=== PATIENT | female | born 1975 | race Caucasian/White ===

== ENCOUNTER 2020-08-23 15:14 | Outpatient (CLI) | payer OTHER, SELFPAY ==
--- NOTE | ~2020-08-23 | MM_ITS ---
EXAMINATION: MM scrn milan implant BI w nestor HISTORY: Screening mammogram TECHNIQUE: Craniocaudal and mediolateral oblique 3-D tomosynthesis images with implant displacement a nd synthetic 2-D images were generated. Craniocaudal and mediolateral oblique views of the breasts wi thout implant displacement were obtained using full field digital mammography. CAD analysis was submi tted and interpreted. COMPARISON: Comparison to multiple prior studies sequentially, with oldest reviewed study dated 05/24. BREAST PARENCHYMAL COMPOSITION: The breasts are heterogeneously dense, which may obscure small masses . FINDINGS: There is no evidence of suspicious mass, calcification, or architectural distortion to sugg est malignancy in either breast. There has been no suspicious interval change. IMPRESSION: 1. No mammographic evidence of malignancy. 2. Recommend routine screening mammography in one year. BI-RADS Category 1: Negative Reviewed, dictated and finalized at location A. [employer]
== END 2020-08-23 15:15 | disposition home or self-care (01) ==
LOC: ANHIMG 15:19
PROVIDERS: PCP Nurse Practitioner Family; Visit Provider Obstetrics & Gynecology
DX: Z12.31 Encounter for screening mammogram for malignant neoplasm of breast (principal)
CPT/HCPCS: 77063; 77067

== ENCOUNTER 2022-02-27 10:18 | Outpatient (CLI) | payer OTHER, SELFPAY ==
--- NOTE | ~2022-02-27 | MM_ITS ---
EXAMINATION: MM scrn milan implant BI w nestor HISTORY: Screening mammogram TECHNIQUE: Craniocaudal and mediolateral oblique 3-D tomosynthesis images with implant displacement a nd synthetic 2-D images were generated. Craniocaudal and mediolateral oblique views of the breasts wi thout implant displacement were obtained using full field digital mammography. CAD analysis was submi tted and interpreted. COMPARISON: 09/09/2020, 07/02/2019, 06/30/2018 bilateral implant screening mammogram examinations BREAST PARENCHYMAL COMPOSITION: The breasts are extremely dense, which lowers the sensitivity of mamm ography. FINDINGS: Status post bilateral augmentation mammoplasty. There is no evidence of suspicious mass, ca lcification, or architectural distortion to suggest malignancy in either breast. There has been no braden spicious interval change. IMPRESSION: 1. No mammographic evidence of malignancy. 2. Recommend routine screening mammography in one year. BI-RADS Category 1: Negative Reviewed, dictated and finalized at location A.
== END 2022-02-27 10:19 | disposition home or self-care (01) ==
PROVIDERS: PCP Nurse Practitioner Family; Visit Provider Obstetrics & Gynecology
DX: Z12.31 Encounter for screening mammogram for malignant neoplasm of breast (principal)
CPT/HCPCS: 77063; 77067

== ENCOUNTER 2022-04-26 01:51 | Day surgery (SDC) | payer OTHER, SELFPAY ==
[2022-04-19 14:12] VITALS: BMI 25.6
--- NOTE | 2022-04-26 12:53 | PM.HPGS ---
History of Present Illness History of Present Illness Consent: Risks, benefits, and alternatives have been discussed and questions answered. Patient agrees to proceed with procedure. Chief complaint: diarrhea/constipation Narrative: Sherine Elias is a 47 year old female referred for investigation of a change in bowel habits. She has alternating loose and hard stools. She has been using a magnesium supplement to help with her bowel movements. Most the time, her stools are very soft very narrow and at times, if she has not had a bowel movement for couple days and she will have explosive diarrhea. On other times she may have hard pebble like stools. She has been having abdominal pain in the central abdomen. She was placed on omeprazole which has not seemed to help that much they she denies heartburn or dysphagia. She denies weight loss. Review of Systems Review of Systems: All systems reviewed & are unremarkable except as noted in HPI and below PMFSH Family History Family History Other Cerebrovascular accident Family history of allergic disorder Social History Social History Smoking status: Former smoker Tobacco type: cigarettes Alcohol intake: current Substance use: never Substance use type: does not use Living arrangements: with family Spiritual care concerns: No Meds Home Medications and Allergies Home Medications Medication Instructions Recorded Confirmed Type Bravenly Calm 1 cap PO 2XW PRN Anxiety 04/19/22 04/19/22 History Bravenly Ignite 1 cap PO DAILY 04/19/22 04/19/[address] Hormonal 2 cap PO DAILY 04/19/22 04/19/22 History Natures Calm Magnesium 1 dose pk PO HS 04/19/22 04/19/22 History bupropion HCl 150 mg tablet,12 hr 150 mg PO BID 04/19/22 04/19/22 History sustained-release omeprazole 40 mg capsule,delayed 40 mg PO DAILY 04/19/22 04/19/22 History release ondansetron 4 mg disintegrating 4 mg translingual TID PRN Nausea 04/19/22 04/19/22 History tablet Allergies Allergy/AdvReac Type Severity Reaction Status Date / Time No Known Allergies Allergy Verified 04/26/22 13:16 Exam Const: General: alert Orientation/consciousness: patient oriented x3 Resp: Auscultation: clear to auscultation bilaterally Cardio: Rhythm: regular rhythm GI: GI Palp: Yes Soft to palpation and No Tenderness to palpation present (GI) Neuro: General: patient oriented x3 Assessment and Plan Assessment and plan (1) Change in bowel habits: Code(s): R19.4 - Change in bowel habit Status: Acute Assessment and Plan: Colonoscopy with possible biopsy or polypectomy or cautery or injection of substances.
[2022-04-26 13:22] VITALS: BP 111/65; PULSE 90; RESP 18; TEMP 36.2; O2SAT 98
[2022-04-26] MEDS: LACTATED RINGERS 1,000 ML 150 ML IV CONT (13:33)
[2022-04-26 14:12] VITALS: BP 106/57; PULSE 92; RESP 21; O2SAT 100
[2022-04-26 14:22] VITALS: BP 108/70; PULSE 89; RESP 18; O2SAT 100
[2022-04-26 14:32] VITALS: BP 111/73; PULSE 79; RESP 20; O2SAT 100
--- NOTE | 2022-05-03 12:12 | WPDANESEPPF ---
Anes - Initial Pre Proc Eval Procedure: Operation Date: 04/26/22 14:30 Proposed Procedures p Colonoscopy - Ganesh Reddy MD Date/Time: 05/03/22 12:12 Surgeon: Gnaesh Reddy MD Pre Op Diagnosis: diarrhea/constipation Patient Data Age: 47 Gender: F Height: 1.57 m Weight: 64.4 kg Last Vital Signs Temp 97.2 F L 04/26/22 13:22 Pulse 79 04/26/22 14:32 Resp 20 04/26/22 14:32 BP 111/73 04/26/22 14:32 Pulse Ox 100 04/26/22 14:32 O2 Del Method Room Air 04/26/22 14:32 Allergies Allergy/AdvReac Type Severity Reaction Status Date / Time No Known Allergies Allergy Verified 04/26/22 13:16 Home Medications Medication Instructions Recorded Confirmed Type Bravenly Calm 1 cap PO 2XW PRN Anxiety 04/19/22 04/19/22 History Bravenly Ignite 1 cap PO DAILY 04/19/22 04/19/[address] Hormonal 2 cap PO DAILY 04/19/22 04/19/22 History Natures Calm Magnesium 1 dose pk PO HS 04/19/22 04/19/22 History bupropion HCl 150 mg tablet,12 hr 150 mg PO BID 04/19/22 04/19/22 History sustained-release omeprazole 40 mg capsule,delayed 40 mg PO DAILY 04/19/22 04/19/22 History release ondansetron 4 mg disintegrating 4 mg translingual TID PRN Nausea 04/19/22 04/19/22 History tablet Patient hx anesthesia problems: none Family hx anesthesia problems: none Results Review: All pre-operative results and documents have been reviewed as part of the pre-operative evaluation. [facility] Family History Family History Other Cerebrovascular accident Family history of allergic disorder Social History Social History Smoking status: Former smoker Tobacco type: cigarettes Alcohol intake: current Substance use: never Substance use type: does not use Living arrangements: with family Spiritual care concerns: No Anes - Eval Final PreProcedure Day of Procedure 05/03/22 12:12 Patient weight: normal Heart: regular rate and rhythm Lungs: clear to auscultation Airway: Mallampati scale class II Neurological: alert and oriented Last oral intake: >/= 8 hours ASA classification: II Emergent: no Anesthetic plan: proceed Anesthesia type and monitoring: general GIVS and standard monitoring Results Review: All pre-operative results and documents have been reviewed as part of the pre-operative evaluation. Informed Consent: The patient's anesthetic plan and its attendant risks and benefits were discussed with the patient/family/POA. Questions were solicited and answers provided to the satisfaction of the patient/family/POA.
== END 2022-04-26 14:35 | disposition home or self-care (01) ==
PROVIDERS: PCP Nurse Practitioner Family; Visit Provider Internal Medicine Gastroenterology
PROC: 0DJD8ZZ Inspection of Lower Intestinal Tract, Via Natural or Artificial Opening Endoscopic (ICD-10-PCS; CPT 45378; principal; 2022-04-26 14:30)
DX: R19.4 Change in bowel habit (principal); Z87.891 Personal history of nicotine dependence
CPT/HCPCS: 45378; J2001; J2704; J7120

== ENCOUNTER 2022-10-29 17:45 | Outpatient (CLI) | payer OTHER, SELFPAY ==
--- NOTE | ~2022-10-29 | US_ITS ---
EXAMINATION: US axilla RT DATE: 10/29/2022 16:55 INDICATION: Mass at the right axilla TECHNIQUE: Multiple grayscale and Doppler ultrasound images of the region of the palpable abnormality at the right axilla were obtained. COMPARISON: None FINDINGS: Well-defined small region of relative thickening of the subdermal fat at the region of concern. No ev ident encapsulated lipoma or other discrete soft tissue masses or fluid collections identified. No ab normal increased vascular flow on color Doppler. IMPRESSION: 1. Ill-defined region of relative thickening of the subdermal fat at the region of concern without a clearly defined masses or abnormal fluid collection. Reviewed, dictated and finalized at location A.
== END 2022-10-29 17:46 | disposition home or self-care (01) ==
LOC: ANHIMG 17:49
PROVIDERS: Visit Provider Obstetrics & Gynecology
DX: N63.0 Unspecified lump in unspecified breast (principal)
CPT/HCPCS: 76882

== ENCOUNTER 2023-07-18 10:31 | Outpatient (CLI) | payer OTHER, SELFPAY ==
[2023-07-18 11:14] LABS: Hematocrit 40.8 % (37.0-47.0); Hemoglobin 13.9 g/dL (12.0-15.0); Mean Corpuscular HGB Conc 34.1 g/dl (32-36); Mean Corpuscular Volume 91.1 fl (80-100); Mean Platelet Volume 8.8 fl (7.4-10.4); Platelet Count Result 308 k/mm3 (150-375); Red Blood Count 4.48 M/mm3 (4.2-5.4); Red Cell Distribution Width 11.8 % (11.5-14.5); White Blood Count 6.3 K/mm3 (4.5-10.0)
== END 2023-07-18 10:32 | disposition home or self-care (01) ==
LOC: ANHSURGERY 10:36
PROVIDERS: Visit Provider Obstetrics & Gynecology
DX: Z01.818 Encounter for other preprocedural examination (principal); N93.9 Abnormal uterine and vaginal bleeding, unspecified
CPT/HCPCS: 36415; 85027; 86850; 86900; 86901

== ENCOUNTER 2023-09-05 00:34 | Day surgery (SDC) | payer OTHER, SELFPAY ==
--- NOTE | 2023-07-14 14:59 | PC.NURSE ---
Addendum entered by Carmen Zuniga RN 07/15/23 11:20: PLEASE STOP ALL VITAMINS AND SUPPLEMENTS FOR 3 DAYS PRIOR TO SURGERY. Original Note: Report to the Outpatient Waiting Room, entrance under the green pavilion located off [facility], at time 0600 on date 07/25/23. Planned Procedure Time: 0730. Time changes happen often and if your time is changed the preop area will call you the afternoon before. - You and your visitor will be asked to self-screen and do not enter if you have any COVID symptoms. - A mask is optional within the hospital at this time. Patients may have clear liquids (water, carbonated beverages, clear teas, apple juice) until 3 hours prior to surgery with a maximum of 20 ounces. 0430 - No food from midnight until time of surgery - Infants may have breast milk until 4 hours before surgery, infant formula 6 hours prior to surgery. - Children will be allowed to drink immediately following surgery. If applicable, please bring a bottle or sippy cup to assist with drinking. Juice, water, soda, and popsicles are readily available. For infants on formula, please bring formula the day of surgery. Pacifiers are allowed. Take the following medications with a SIP of water the morning of surgery: bupropion DO NOT STOP ANY OF YOUR OTHER PRESCRIPTION MEDICATIONS PRIOR TO SURGERY ?EXCEPT THE FOLLOWING Medications to discontinue per physician vitamins & supplements Date to take last dose Please no make-up, nail thai, hairspray, perfume, deodorant, or body powder the day of surgery. No jewelry (including any body piercings) or valuables the day of surgery, leave them at home. Please take a shower or bath the night before, or the morning of, surgery with an antibacterial soap. Wear comfortable, loose fitting clothing. Children are encouraged to wear pajamas. - Jewelry must be removed prior to entering the operating room. Rings and piercings that are not removed may be cut off. - The hospital will not accept responsibility for valuables. - Please leave all valuables, including medications, at home the day of surgery. If you are going home after surgery, a licensed tractor driver must drive you home. - NO public transportation without another adult if you receive anesthesia. - We recommend that an adult stay with you for 24 hours following discharge. - We also recommend that you do not drive, make important decision, drink alcoholic beverages, or take any drugs that were not prescribed by your health care provider for at least 24 hours after your discharge time. For Pediatric surgeries, we recommend two adults accompany the child home. Follow any additional instructions given to you from your surgeon. If you or anyone in your household have experienced Covid symptoms in the past week, please notify your surgeon or the nurse liaison at the phone number below for possible testing. Telephone instructions given to Patient- Sherine Elias and asked if any additional questions and then verbalized understanding. Patient advised to call surgeon office or pre surgery nurse liaison [phone] if any additional questions.
[2023-07-14 15:07] VITALS: BMI 29.7
--- NOTE | 2023-07-22 07:26 | PM.IMHP ---
H&P: HPI History of Present Illness Date/Time: 07/22/23 07:26 Chief Complaint: Pelvic pain/bleeding refractory to medical therapy./stress urinary incontinence/enlarged uterus Narrative: This is a 48-year-old multiparous female admitted for robotic hysterectomy bilateral salpingectomy and tension-free vaginal tape. She moves of pain bleeding and dysmenorrhea. She has an enlarged uterus and stress incontinence risks and benefits of the procedure reviewed including not exclusive of , aspiration, bleeding, transfusion, perforation injury to bowel, bladder, ureters, or other internal organs with need for open laparotomy. The risk of mesh exposure etc. reviewed as well. She received and oz from [employer] entitled hysterectomy as well as the de [place] handout and the TB T and out. She had all questions answered and asked to proceed PMFSH Past Medical History Medical History GERD (gastroesophageal reflux disease) Surgical History Surgical History H/O breast augmentation H/O removal of cyst bakers cyst History of delivery History of D&C Family History Family History Mother Uterine cancer Other Cerebrovascular accident Family history of allergic disorder Social History Social History Smoking packs per day: 1 Smoking cigarettes per day: 20.0 Years smoked: 1 Smoking pack-years: 1.00 Smoking status: Former smoker Tobacco type: cigarettes Alcohol intake: current Substance use: never Substance use type: does not use Living arrangements: with family Spiritual care concerns: No Meds Home Medications and Allergies Home Medications Medication Instructions Recorded Confirmed Type Natures Calm Magnesium 1 dose pk PO HS 04/19/22 07/14/23 History bupropion HCl 150 mg tablet,12 hr 150 mg PO BID 04/19/22 07/14/23 History sustained-release B Complex-Vitamin B12 1 tab-cap PO DAILY 07/14/23 07/14/23 History Vitamin D3 1 tab-cap PO DAILY 07/14/23 07/14/23 History digestive enzymes 1 caplet PO DAILY 07/14/23 07/14/23 History Allergies Allergy/AdvReac Type Severity Reaction Status Date / Time No Known Allergies Allergy Verified 07/14/23 14:49 Exam Const: General: cooperative, healthy appearing and comfortable Nutritional Appearance: average body habitus Orientation/consciousness: oriented to person, oriented to place and oriented to time HENMT: Head: normal to inspection Resp: Effort & Inspection: normal respiratory effort Cardio: Rate: regular rate Rhythm: regular rhythm Heart sounds: S1 normal heart sound present and S2 normal heart sound present GI: Inspection: normal to inspection : External Female Exam: normal external appearance and other (Urethral motion with Valsalva) Speculum Exam - Vagina: normal appearance of the vagina Speculum Exam - Cervix: normal appearance of the cervix Bimanual exam- vagina & uterus: enlarged Bimanual Exam- Adnexa, other: normal adnexae Assessment and Plan Assessment and plan (1) Pelvic pain: Code(s): R10.2 - Pelvic and perineal pain Status: Acute (2) Dysmenorrhea: Code(s): N94.6 - Dysmenorrhea, unspecified Status: Acute (3) Enlarged uterus: Code(s): N85.2 - Hypertrophy of uterus Status: Acute (4) Overflow stress urinary incontinence in female: Code(s): N39.3 - Stress incontinence (female) (male); N39.490 - Overflow incontinence Status: Acute Plan Robotic total vaginal hysterectomy with bilateral salpingectomies and tension-free vaginal tape
--- NOTE | 2023-09-03 06:55 | PM.IMHP ---
H&P: HPI History of Present Illness Date/Time: 09/03/23 06:55 Chief Complaint: pelvic pain/ dysmenorrhea/ stress urinary incontinence/ enlarged uterus Narrative: 48 year multiparous patient a for robotic total vaginal hysterectomy bilateral salpingectomy with tension-free vaginal tape. She has stress incontinence she has uterine prolapse with an enlarged uterus excessive heavy bleeding which has been refractory to medical therapy. She will undergo robotic hysterectomy and bilateral salpingectomy tension-free vaginal tape risks and benefits were reviewed including but not exclusive of , aspiration pneumonia, bleeding, transfusion, perforation injury to bowel, bladder, ureters, or other internal organs with need for open laparotomy. The risk of the mesh was reviewed. She received the [employer] handouts entitled hysterectomy. She received a [employer] handout concerning DVT. She had all questions answered. She asked to proceed PMFSH Past Medical History Medical History GERD (gastroesophageal reflux disease) Surgical History Surgical History H/O breast augmentation H/O removal of cyst bakers cyst History of delivery History of D&C Family History Family History Mother Uterine cancer Other Cerebrovascular accident Family history of allergic disorder Social History Social History Smoking packs per day: 1 Smoking cigarettes per day: 20.0 Years smoked: 1 Smoking pack-years: 1.00 Smoking status: Former smoker Tobacco type: cigarettes Alcohol intake: current Substance use: never Substance use type: does not use Living arrangements: with family Spiritual care concerns: No Meds Home Medications and Allergies Home Medications Medication Instructions Recorded Confirmed Type Natures Calm Magnesium 1 dose pk PO HS 04/19/22 07/14/23 History bupropion HCl 150 mg tablet,12 hr 150 mg PO BID 04/19/22 07/14/23 History sustained-release B Complex-Vitamin B12 1 tab-cap PO DAILY 07/14/23 07/14/23 History Vitamin D3 1 tab-cap PO DAILY 07/14/23 07/14/23 History digestive enzymes 1 caplet PO DAILY 07/14/23 07/14/23 History Allergies Allergy/AdvReac Type Severity Reaction Status Date / Time No Known Allergies Allergy Verified 07/14/23 14:49 Exam Const: General: cooperative, healthy appearing and comfortable Nutritional Appearance: average body habitus Orientation/consciousness: oriented to person, oriented to place and oriented to time Resp: Effort & Inspection: normal respiratory effort Cardio: Rate: regular rate Rhythm: regular rhythm Heart sounds: S1 normal heart sound present and S2 normal heart sound present GI: Inspection: normal to inspection : External Female Exam: normal external appearance Speculum Exam - Vagina: normal appearance of the vagina Speculum Exam - Cervix: normal appearance of the cervix ( second-degree prolapse) Bimanual exam- vagina & uterus: enlarged Bimanual Exam- Adnexa, other: normal adnexae Assessment and Plan Assessment and plan (1) Overflow stress urinary incontinence in female: Code(s): N39.3 - Stress incontinence (female) (male); N39.490 - Overflow incontinence Status: Acute (2) Enlarged uterus: Code(s): N85.2 - Hypertrophy of uterus Status: Acute (3) Dysmenorrhea: Code(s): N94.6 - Dysmenorrhea, unspecified Status: Acute (4) Pelvic pain: Code(s): R10.2 - Pelvic and perineal pain Status: Acute Plan robotic total vaginal hysterectomy with bilateral salpingectomy and tension-free vaginal tape
--- NOTE | 2023-09-03 09:48 | PC.NURSE ---
Report to the Outpatient Waiting Room, entrance under the green pavilion located off [facility], at time 0730 on date 09/05/23. Planned Procedure Time: 0930. Time changes happen often and if your time is changed the preop area will call you the afternoon before. - You and your visitor will be asked to self-screen and do not enter if you have any COVID symptoms. - A mask is optional within the hospital at this time. Patients may have clear liquids (water, carbonated beverages, clear teas, apple juice) until 3 hours prior to surgery with a maximum of 20 ounces. - No food from midnight until time of surgery Take the following medications with a SIP of water the morning of surgery: WELLBUTRIN DO NOT STOP ANY OF YOUR OTHER PRESCRIPTION MEDICATIONS PRIOR TO SURGERY ?EXCEPT THE FOLLOWING Medications to discontinue per physician: VITAMINS/SUPPLEMENTS Date to take last dose: NO MORE UNTIL AFTER SURGERY Please no make-up, nail turkmen, hairspray, perfume, deodorant, or body powder the day of surgery. No jewelry (including any body piercings) or valuables the day of surgery, leave them at home. Please take a shower or bath the night before, or the morning of, surgery with an antibacterial soap. Wear comfortable, loose fitting clothing. - Jewelry must be removed prior to entering the operating room. Rings and piercings that are not removed may be cut off. - The hospital will not accept responsibility for valuables. - Please leave all valuables, including medications, at home the day of surgery. If you are going home after surgery, a licensed shuttle van driver must drive you home. - NO public transportation without another adult if you receive anesthesia. - We recommend that an adult stay with you for 24 hours following discharge. - We also recommend that you do not drive, make important decision, drink alcoholic beverages, or take any drugs that were not prescribed by your health care provider for at least 24 hours after your discharge time. Follow any additional instructions given to you from your surgeon. If you or anyone in your household have experienced Covid symptoms in the past week, please notify your surgeon or the nurse liaison at the phone number below for possible testing. Telephone instructions given to PT - STEPHANIE and asked if any additional questions and then verbalized understanding. Patient advised to call surgeon office or pre surgery nurse liaison [phone] if any additional questions.
--- NOTE | 2023-09-04 14:41 | P.PNAN_ITS ---
Anes - Initial Pre Proc Eval Procedure: Operation Date: 09/05/23 09:30 Proposed Procedures p Robotic Assisted Total Vaginal Hysterectomy with Bilateral Salpingectomy - Pérez Crowley MD s Tension Free Vaginal Taping - Pérez Crowley MD Date/Time: 09/04/23 14:41 Surgeon: Pérez Crowley MD Pre Op Diagnosis: pain, dysmenorrhea, heavy bleeding, JOHN Patient Data Age: 48 Gender: F Height: 1.56 m Weight: 72.7 kg Allergies Allergy/AdvReac Type Severity Reaction Status Date / Time No Known Allergies Allergy Verified 09/05/23 08:05 Home Medications Medication Instructions Recorded Confirmed Type Natures Calm Magnesium 1 dose pk PO HS 04/19/22 09/05/23 History bupropion HCl 150 mg tablet,12 hr 150 mg PO BID 04/19/22 09/05/23 History sustained-release B Complex-Vitamin B12 1 tab-cap PO DAILY 07/14/23 09/05/23 History Vitamin D3 1 tab-cap PO DAILY 07/14/23 09/05/23 History digestive enzymes 1 caplet PO DAILY 07/14/23 09/05/23 History hydrocodone 5 mg-acetaminophen 325 1 tablet PO Q4H PRN pain #30 tabs 09/05/23 Rx mg tablet Patient hx anesthesia problems: none Family hx anesthesia problems: none Results Review: All pre-operative results and documents have been reviewed as part of the pre- operative evaluation. [facility] Past Medical History Medical History GERD (gastroesophageal reflux disease) Surgical History Surgical History (Updated 09/04/23 @ 14:41 by Marbin Block DO) H/O breast augmentation H/O removal of cyst bakers cyst History of delivery History of D&C History of tubal ligation Family History Family History Mother Uterine cancer Other Cerebrovascular accident Family history of allergic disorder Social History Social History Smoking packs per day: 1 Smoking cigarettes per day: 20.0 Years smoked: 1 Smoking pack-years: 1.00 Smoking status: Former smoker Tobacco type: cigarettes Alcohol intake: current Substance use: never Substance use type: does not use Living arrangements: with family Spiritual care concerns: No Anes - Eval Final PreProcedure Day of Procedure 09/04/23 14:41 Patient weight: overweight Heart: regular rate and rhythm Lungs: clear to auscultation Airway: Mallampati scale class II Neurological: alert and oriented Last oral intake: >/= 8 hours ASA classification: II Emergent: no Anesthetic plan: proceed Anesthesia type and monitoring: general ETT and standard monitoring Results Review: All pre-operative results and documents have been reviewed as part of the pre- operative evaluation. Informed Consent: The patient's anesthetic plan and its attendant risks and benefits were discussed with the patient/family/POA. Questions were solicited and answers provided to the satisfaction of the patient/family/POA.
[2023-09-05] VITALS (13 sets, daily range): BP systolic 100–128; BP diastolic 62–89; PULSE 81–92; RESP 12–20; TEMP 36.2–37.1; O2SAT 84–100; BMI 30.4
--- NOTE | 2023-09-05 06:30 | WPDHPUPDATE1 ---
History and Physical Update Update Date/Time: 09/05/23 06:30 History and Physical has been reviewed, including an updated exam of the patient. There are NO changes in the patient's condition. Risks, benefits, and alternatives have been discussed and questions answered. Patient agrees to proceed with procedure.
[2023-09-05] MEDS: LACTATED RINGERS 1,000 ML 30 ML IV CONT ×2 (08:15→10:39)
[2023-09-05] MEDS: ACETAMINOPHEN 500 MG TABLET 1000 MG PO (08:25)
[2023-09-05] MEDS: KETOROLAC 15 MG/ML VIAL (*BKC) IV PUSH (08:26)
[2023-09-05] MEDS: ceFAZolin 2 GM/D5W 50 ML 2 GM/50 ML BAG IVPB (09:13)
--- NOTE | 2023-09-05 10:35 | PM.DS ---
DS: Admitting Diagnosis Discharge Date 09/06/2023 Admitting Diagnosis stress uterine cut is/enlarged uterus /pelvic pain/strain uterine prolapse DS: Discharge Diagnosis Discharge Diagnosis (1) Overflow stress urinary incontinence in female: Code(s): N39.3 - Stress incontinence (female) (male); N39.490 - Overflow incontinence Status: Acute (2) Enlarged uterus: Code(s): N85.2 - Hypertrophy of uterus Status: Acute (3) Dysmenorrhea: Code(s): N94.6 - Dysmenorrhea, unspecified Status: Acute (4) Pelvic pain: Code(s): R10.2 - Pelvic and perineal pain Status: Acute DS: Summary Hospital Course Reason for hospitalization: patient was admitted for robotic total vaginal hysterectomy bilateral salpingectomy with tension-free vaginal tape. She underwent this procedure on 08/26/2014 24. Hospital Course: Her hospital course was unremarkable. She remained afebrile. She was up, voiding without difficulty eating A regular diet red ambulating generally without complaints. Time Spent with Patient Time attestation: Total time spent providing and/or coordinating discharge services: Exam Const: General: cooperative, healthy appearing and comfortable Nutritional Appearance: average body habitus Orientation/consciousness: oriented to person, oriented to place and oriented to time Chest: Chest palpation & inspection: normal inspection of the chest Resp: Effort & Inspection: normal respiratory effort Cardio: Rate: regular rate Rhythm: regular rhythm Heart sounds: S1 normal heart sound present and S2 normal heart sound present GI: Inspection: normal to inspection and incision ( incisions are clean dry and intact) DS: Data Data Completed and Pending Pending studies at discharge: Pending at discharge 09/05/23 10:10 Surgical [PTH] Routine Labs on day of discharge: Labs from last 24 hours 09/05/23 08:19 Blood Type B Positive Antibody Screen Negative Discharge Plan Discharge Patient Disposition: Home, Self-Care Stand Alone Forms: General Discharge Instructions Follow-up/Referrals: Pérez Gonzalez MD [Physician] - Discharge Medications: New hydrocodone-acetaminophen 5-325 mg tablet 1 tablet PO Q4H PRN (Reason: pain) Qty: 30 0RF No Action bupropion HCl 150 mg tablet sustained-release 12 hr 150 mg PO BID Natures Calm Magnesium 1 dose pk PO HS B Complex-Vitamin B12 1 tab-cap PO DAILY Vitamin D3 1 tab-cap PO DAILY digestive enzymes 1 caplet PO DAILY
--- NOTE | 2023-09-05 10:38 | W.PM.PROC2 ---
Procedure Note - Detailed Date of Procedure 09/05/23 Pre-op Diagnosis pain, dysmenorrhea, heavy bleeding, JOHN Post-op Diagnosis Same Procedure Performed Hysterectomy bilateral salpingectomy with cystoscopy tension-free vaginal tape Surgeon Pérez Crowley MD Anesthesia General Indications 48-year-old female with uterine prolapse stress incontinence and pelvic pain Findings the large uterus. Stress urinary incontinence. Normal-appearing ovaries. Tubes status post tubal ligation. Description of Procedure Patient was prepped draped sterile fashion placed in dorsal lithotomy position. Under excellent general trach anesthesia weighted speculum placed in posterior fornix vagina. Anterior lip of cervix grasped with single-tooth tenaculum. Uterus sounded to 11cm. Serial dilatation with fragmented dilators performed followed by passage of the 10. MERRILL and the 3. Cold cup. Next an 18 [place] catheter was placed and bladder drained of clear urine. The weighted speculum and the single-tooth removed. The gloves were changed. A supraumbilical incision made the Veress needle passed in the abdomen. Abdomen filled with CO2 gas [id number]. The 8mm trocar advanced in the abdomen. Downside visualized no injury seen. Patient placed in Trendelenburg and right left lateral quadrant incision made. The 8mm trocar advanced under direct visualization assuring no injury. Right upper products was made 8mm trocar advanced under direct visualization. The robot was docked. Attention was turned to the console. The left round ligament was grasped, burned, cut. Anteriorly a bladder flap was formed by sharply dissecting the peritoneum and retracted the bladder distally from the uterus and cervix to the opposite round ligament which was clamped, burned, cut. The fallopian tube was then dissected away from the ovary and the stump left attached to the to the uterine origin. This was repeated on contralateral side next conserving the left ovary the utero-ovarian ligament was skeletonized clamping burning cutting burning to the level of the previous cut round ligament. In like fashion the utero-ovarian ligament on the right was skeletonized clamping burning cutting irregular the level of previously cut round ligament. The ovary was conserved. The cardinal broad ligaments on the left were then serially skeletonized clamping burning cutting and released down the lateral edge of the cervix uterus hugging then until the uterine vessels could be seen. The uterine vessels were large and tortuous and individually clamped, burned, cut. In similar fashion on the right the cardinal broad ligaments were skeletonized clamping burning cutting and bringing this down the lateral edge of the uterus until the uterine vessels could be seen on the right these were individually clamped, burned, cut. A colpotomy incision was made cervix uterus and portions of tube removed through the vagina. The vagina then closed with continuous running 0V lock from lateral edge lateral edge. Attention was then turned to the tension-free vaginal tape procedure after the incisions were closed with 4 Monocryl and glue and the robot undocked. The of urethral catheter guide was placed infra urethral incision made its midportion and the bladder bladder space was entered by blunt dissection the urethra was retracted laterally and the right retropubic bladder space entered 45 degree angle up to 35 and through the fashion skin the urethra was retracted the opposite side this was repeated on the contralateral side. These was the 70degree cystoscope was inserted no injury seen these were then brought up to the level of the and opened P on clamped and the portion of the tape cut at the suprapubic area. The vagina closed with 3 O Monocryl. The instruments withdrawn blood loss estimated at25cc. All sponge, needle, instrument counts were correct. There were no immediate complications Implants tvt device Estimated Bloo
[2023-09-05] MEDS: fentaNYL CITRATE INJ (*CRX) 100 MCG/2 ML VIAL 25 MCG IV PUSH ×6 (11:14→12:30)
[2023-09-05] MEDS: DEXTROSE 5%/LACTATED RINGERS 1,000 ML 125 ML IV CONT (13:10)
[2023-09-05] MEDS: KETOROLAC 30 MG/ML VIAL (*BKC) IV PUSH (13:10)
[2023-09-05] MEDS: SIMETHICONE 80 MG TAB.CHEW PO ×2 (15:49→20:40)
[2023-09-05] MEDS: HYDROcodone/acetaminophen (*CRX) 5-325 MG TABLET 1 TAB PO ×2 (15:49→20:40)
[2023-09-05] MEDS: buPROPion HCL SR (12 HR) 150 MG TAB PO (20:40)
[2023-09-05] MEDS: IBUPROFEN 600 MG TABLET PO (20:40)
[2023-09-05] MEDS: DOCUSATE SODIUM 100 MG CAPSULE PO (20:40)
[2023-09-06] MEDS: HYDROcodone/acetaminophen (*CRX) 5-325 MG TABLET 1 TAB PO ×3 (00:39→07:16)
[2023-09-06 04:15] VITALS: BP 124/78; PULSE 100; RESP 16; TEMP 36.8; O2SAT 100
[2023-09-06] MEDS: SIMETHICONE 80 MG TAB.CHEW PO ×2 (04:20→07:16)
[2023-09-06] MEDS: IBUPROFEN 600 MG TABLET PO (04:20)
[2023-09-06 05:18] LABS: Basophils Percent Auto 0.2 % (0.2-1.2); Eosinophils Percent Auto 0.1 % (0-4.4); Hematocrit 38.9 % (37.0-47.0); Immature Granulocyte Absolute 0.06 K/mm3 (0.00-0.031); Immature Granulocyte Percent A 0.4 % (0-0.5); Lymphocytes Absolute Auto 1.98 K/mm3 (0.9-3.2); Lymphocytes Percent Auto 13.4 % (18.3-44.2); Mean Corpuscular HGB Conc 33.4 g/dl (32-36); Mean Corpuscular Hemoglobin 30.8 pg (26-34); Mean Corpuscular Volume 92.2 fl (80-100); Mean Platelet Volume 8.9 fl (7.4-10.4); Monocytes Absolute Auto 1.2 K/mm3 (0.1-0.6); Monocytes Percent Auto 8.4 % (2.6-8.5); Neutrophils Absolute Auto 11.4 K/mm3 (1.3-6.7); Neutrophils Percent Auto 77.5 % (45.5-73.1); Platelet Count Result 307 k/mm3 (150-375); Red Blood Count 4.22 M/mm3 (4.2-5.4); Red Cell Distribution Width 12.2 % (11.5-14.5); White Blood Count 14.7 K/mm3 (4.5-10.0)
--- NOTE | 2023-09-06 06:39 | PM.GYNPNOP ---
[employer] REPAIRER - A/P Postoperative Procedures: Procedures Operation Date: 09/05/23 09:30 Actual Procedure Side Surgeon p Robotic Assisted Total Vaginal Hysterectomy with Bilateral Salpingectomy Bilateral Pérez Crowley MD s Tension Free Vaginal Taping Pérez Crowley MD Postoperative day: 1 Postoperative status: doing well Postoperative plan: routine post-op care, ambulate, advance diet, voiding trials and discharge Time Spent With Patient Time: Total time spent is greater than 50% in coordination of care (as documented) at patient's floor/unit and/or counseling patient: Time with patient: less than 15 minutes [employer] REPAIRER- PN:Subj Post-Op Subjective Date/time seen: 09/06/23 06:39 Subjective: patient has no complaints, patient desires discharge, pain is well controlled and patient is tolerating oral intake Exam Const: General: cooperative, healthy appearing and comfortable Nutritional Appearance: average body habitus Orientation/consciousness: oriented to person, oriented to place and oriented to time HENMT: Head: normal to inspection Resp: Effort & Inspection: normal respiratory effort Cardio: Rate: regular rate Rhythm: regular rhythm Heart sounds: S1 normal heart sound present and S2 normal heart sound present GI: Inspection: normal to inspection and incision (cdi) [employer] REPAIRER - PN: Obj Data Vital Signs Vital Signs: Vital Signs - 24 hr 09/05/23 07:45 09/05/23 10:39 09/05/23 10:50 Temperature 98.4 F 97.1 F L Pulse Rate 81 83 92 Respiratory Rate 14 12 18 Blood Pressure 117/66 100/62 109/74 Pulse Oximetry 100 100 100 Oxygen Delivery Room Air Simple Face Mask Simple Face Mask Oxygen Flow Rate 8 8 09/05/23 11:05 09/05/23 11:20 09/05/23 11:35 Temperature Pulse Rate 86 85 84 Respiratory Rate 20 14 14 Blood Pressure 111/66 111/71 115/74 Pulse Oximetry 100 98 84 L Oxygen Delivery Simple Face Mask Room Air Room Air Oxygen Flow Rate 8 09/05/23 11:45 09/05/23 12:00 09/05/23 12:15 Temperature Pulse Rate 84 83 92 Respiratory Rate 14 15 15 Blood Pressure 117/78 115/75 Pulse Oximetry 100 100 100 Oxygen Delivery Room Air Room Air Room Air Oxygen Flow Rate 09/05/23 12:29 09/05/23 11:35 09/05/23 12:55 Temperature 98.1 F Pulse Rate 87 92 Respiratory Rate 16 16 Blood Pressure 113/89 110/72 Pulse Oximetry 100 100 100 Oxygen Delivery Room Air Room Air Oxygen Flow Rate 09/05/23 12:50 09/05/23 15:50 09/05/23 20:40 Temperature 98.8 F Pulse Rate 90 Respiratory Rate 20 16 Blood Pressure 114/70 Pulse Oximetry 98 100 Oxygen Delivery Room Air Room Air Oxygen Flow Rate 09/05/23 20:40 09/06/23 04:15 09/06/23 04:15 Temperature 98.7 F 98.2 F Pulse Rate 89 100 100 Respiratory Rate 16 16 16 Blood Pressure 128/81 124/78 Pulse Oximetry 100 100 100 Oxygen Delivery Room Air Oxygen Flow Rate Intake/Output Intake/Output: Intake & Output 09/03/23 09/04/23 09/05/23 09/06/23 23:59 23:59 23:59 23:59 Intake Total 450 Output Total 1485 Balance -1035 Meds/Results Medications: Active Medications Generic Name Dose Route Start Last Admin Trade Name Freq PRN Reason Stop Dose Admin Hydrocodone Bitart/Acetaminophen 1 tab 09/05/23 11:42 09/06/23 04:20 Hydrocodone/Acetaminophen (*Crx) 5-325 Mg Tablet PO 1 tab Q3H PRN Administration Pain Rated 5 or Less Hydrocodone Bitart/Acetaminophen 1 tab 09/05/23 11:42 Hydrocodone/Acetaminophen (*Crx) 10-325 Mg Tablet PO Q3H PRN Pain Rated 6 or Greater Docusate Sodium 100 mg 09/05/23 17:00 09/06/23 00:54 Docusate Sodium 100 Mg Capsule PO Not Given BID [facility] Enoxaparin Sodium 40 mg 09/06/23 09:00 Enoxaparin 40 Mg/0.4 Ml Syringe SUB-Q DAILY TRISTIAN Ibuprofen 600 mg 09/05/23 11:42 09/06/23 04:20 Ibuprofen 600 Mg Tablet PO 600 mg Q6H PRN Administration Cramping Naloxone HCl 0.1 mg 09/05/23 11:42 Naloxone Hcl 0.4 Mg/Ml Vial IV PUSH Q2M PRN
[2023-09-06 07:15] VITALS: BP 117/66; PULSE 93; RESP 16; TEMP 36.9; O2SAT 98
[2023-09-06] MEDS: ENOXAPARIN 40 MG/0.4 ML SYRINGE SUB-Q (07:17)
== END 2023-09-06 10:40 | disposition home or self-care (01) ==
LOC: ANHSURGERY 07:38 → ANHOB2 12:36
PROVIDERS: Visit Provider Obstetrics & Gynecology
PROC: (CPT 57288; principal; 2023-09-05 09:30)
PROC: 0TSD0ZZ Reposition Urethra, Open Approach (ICD-10-PCS; CPT 57288; 2023-09-05 09:30)
DX: N81.4 Uterovaginal prolapse, unspecified (principal); N39.3 Stress incontinence (female) (male); D25.1 Intramural leiomyoma of uterus; N80.03 Adenomyosis of the uterus; N70.11 Chronic salpingitis; N72 Inflammatory disease of cervix uteri; R10.2 Pelvic and perineal pain; N94.6 Dysmenorrhea, unspecified; N39.490 Overflow incontinence; N88.8 Other specified noninflammatory disorders of cervix uteri; Z87.891 Personal history of nicotine dependence
CPT/HCPCS: 57288; 58552; S2900; 36415; 85025; 86850; 86900; 86901; 88307; 99199; A9270; C1771; J0330; J0690; J1100; J1650; J1885; J2250; J2405; J2704; J3010; J7030; J7120; J7121